=== PATIENT | male | born 1965 | race Caucasian/White ===

== ENCOUNTER 2019-01-11 20:39 | Inpatient (IN) | payer MEDICARE, SELFPAY ==
--- NOTE | 2019-01-11 20:53 | CT ---
FExam: CT brain PROVIDED CLINICAL HISTORY: Left-sided weakness and left-sided facial droop, surgeons each and right-sided weakness COMPARISON: None FINDINGS: There is asymmetric prominence of the temporal horn of the right lateral ventricle presumably ex vacu o in nature on the basis of prior infarction. Chronic microvascular ischemic changes are seen. No arlene dence for intracranial hemorrhage or mass effect. The extracranial soft tissues and osseous structure s demonstrate an unremarkable CT appearance. IMPRESSION: No evidence for intracranial hemorrhage or mass effect. Findings communicated to the ordering clinici an 8:50 PM 01/11/2019. Code CR
[2019-01-11 21:01] LABS: #Eosinphils 0.2 thou/uL (0.0-0.7); #Monocytes 0.7 thou/uL (0.11-0.59); #Neutrophils 7.7 thou/uL (1.40-6.50); %Basophils 0.3 % (0.0-1.0); %Eosinophils 1.8 % (0.0-10.0); %Lymphocytes 18.5 % (21.0-51.0); %Monocytes 6.6 % (0.0-10.0); %Neutrophils 72.8 % (42.0-75.0); Hemoglobin 14.5 g/dL (14.0-18.0); Mean Corpuscular Hemoglobin 29.4 pg (27.0-31.0); Mean Corpuscular Volume 89.3 fL (78.0-98.0); Mean Platelet Volume 7.5 fL (7.4-10.4); Platelet Count 213 thou/uL (130-400); RBC Distribution Width 13.2 % (11.5-14.5); Red Blood Cell (RBC) Count 4.92 mill/uL (4.70-6.10); White Blood Cell (WBC) Count 10.6 thou/uL (4.8-10.8)
[2019-01-11] MEDS ORDERED: Sodium Bicarb 50 MEQ/50 ML Abboject 8.4% SYRINGE ONE (21:03)
[2019-01-11] MEDS ORDERED: Sodium Bicarb 50 MEQ/50 ML VIAL ONE (21:03)
[2019-01-11 21:08] LABS: PTT 32.8 SEC (22.9-36.1); Prothrombin Time 13.5 SEC (12.0-14.7)
[2019-01-11 21:15] LABS: ALT (SGPT) 22 U/L (8-55); AST (SGOT) 21 U/L (5-34); Albumin 3.7 g/dL (3.5-5.0); Alkaline Phosphatase 85 U/L (40-150); Anion Gap 12 mmol/L (10-20); BUN (Urea Nitrogen) 10 mg/dL (8.4-25.7); Bilirubin, Total 0.7 mg/dL (0.2-1.2); CK (CPK) 151 U/L (30-200); Calc. Creatinine Clearance 0 mL/min (70-130); Calcium 8.8 mg/dL (7.8-10.44); Carbon Dioxide 23 mmol/L (22-29); Chloride 108 mmol/L (98-107); Estimated GFR-MDRD 54; Globulin 2.6 g/dL (2.4-3.5); Glucose 94 mg/dL (70-105); Potassium 3.6 mmol/L (3.5-5.1); Protein, Total 6.3 g/dL (6.0-8.3); Sodium 139 mmol/L (136-145)
[2019-01-11 21:16] LABS: Acetaminophen Less than 6.0 mcg/mL (10.0-30.0); Alcohol Less than 10 mg/dL (Less than 10); Salicylate Less than 8.0 mg/dL (15.0-30.0)
[2019-01-11 21:32] LABS: Actual Bicarbonate (HCO3a) 32.5 mEq/L (22-28); Analyzer IN Cardio ER; Base Excess (BEa) 9.1 mEq/L (-2.0 to +3.0); Calcium, Ionized 1.06 mmol/L (1.12-1.30); Carboxyhemoglobin (COHb) 0.5 gm% (0.0-3.0); Hemoglobin (Hb) 14.6 g/dL (14.0-18.0); Potassium - ABG Lab 3.36 mmol/L (3.70-5.30); pH, Arterial 7.53 (7.35-7.45)
[2019-01-11 21:33] LABS: Puncture Site RRA
[2019-01-11] MEDS ORDERED: Sodium Bicarbonate 150 MEQ in Dextrose 5% in Water 1,000 ML IV SCH (21:45)
--- NOTE | 2019-01-11 23:13 | PDOC.FPRHP ---
- History of Present Illness Chief Complaint: found down History of Present Illness: *pt does not recall much of the events leading up to ER visit and is generally poor historian. Much of hx given by EMS etc. 53yo M with hx of CVA presents after being found unarousable in his car by his neighbor. When he did finally waken pt was noted to have speech issues and L sided weakness with AMS and called EMS. Pt reports he takes amitriptyline for chronic shoulder pain and insomnia and he kept taking pills to help him sleep but denies taking more than 5 though is not really sure. EMS noted a bottle of amitriptyline in the pts house that was filled on 01/09 for 15 100mg amitriptyline tabs of which only 5 were remaining. Pt was supposed to be taking 1 per day. Pt denies any symptoms when evaluated except residual L sided weakness and numbness since previous CVA. Also reports he is generally non compliant with home medications. Pt denies depression or anxiety, denies attempted suicide, no SI/HI/AVH ED Course: EKG shows QRS 102->106->102, pt given 3 amps of bicarb and then started on drip. CT brain shows no evidence of stroke - Allergies/Adverse Reactions Allergies Allergy/AdvReac Type Severity Reaction Status Date / Time Iodinated Contrast- Oral and Allergy Verified 01/11/19 21:22 IV Dye - Home Medications Medication Instructions Recorded Confirmed Type Amitriptyline HCl 100 mg PO DAILY 01/12/19 01/12/19 History Aspirin [Ecotrin Low Strength] 81 mg PO DAILY 01/12/19 01/12/19 History Atorvastatin Calcium [Lipitor] 40 mg PO HS #30 tab 01/12/19 Rx Lisinopril 40 mg PO DAILY 01/12/19 01/12/19 History Ventolin HFA Inhaler 2 puff INH Q4HR PRN 01/12/19 01/12/19 History - History PMHx: HTN, asthma, Hx of CVA (l sided weakness and numbness) PSHx: L knee FHx: stroke Social: drinks 2 beers/day, denies drugs, denies tobacco - Review of Systems General: denies: fever/chills, fatigue Eyes: denies: eye pain, vision changes ENT: denies: nasal congestion, rhinorrhea Respiratory: denies: cough, shortness of breath Cardiovascular: denies: chest pain, palpitation Gastrointestinal: denies: nausea, vomiting Genitourinary: denies: dysuria, polyuria Skin: denies: rashes, lesions Musculoskeletal: denies: pain, tenderness Neurological: denies: syncope, seizure Psychological: denies: anxiety, depression - Vital signs BP: 164/115, Pulse: 96, Resp: 16, Pain: 0, O2 sat: 98 on Room Air, Time: 2018 00:18., TMAX 98.9, weight 72kg - Physical Exam Constitutional: NAD, awake, alert and oriented HEENT: normocephalic and atraumatic, EOMI, grossly normal vision, grossly normal hearing, MMM Neck: supple, trachea midline Chest: no-tender to palpation Heart: RRR, normal S1/S2 Lungs: CTAB, no respiratory distress Abdomen: soft, non-tender Musculoskeletal: normal structure, normal tone -Neurological: 4/5 strength on UE adduction and elbow flexion and hip flexion, decreased sensation to LUE. Otherwise processing manager sensory, strength and reflexes intact and symetric Skin: no rash/lesions, good turgor Heme/Lymphatic: no unusual bruising or bleeding, no purpura Psychiatric: good judgment and insight, other (flat affect) FMR H&P: Results - Labs Result Diagrams: 01/12/19 05:18 01/12/19 05:18 Lab results: WBC 10.6 thou/uL (4.8-10.8) 01/11/19 20:51 Hgb 14.5 g/dL (14.0-18.0) 01/11/19 20:51 Hct 43.9 % (42.0-52.0) 01/11/19 20:51 MCV 89.3 fL (78.0-98.0) 01/11/19 20:51 Plt Count 213 thou/uL (130-400) 01/11/19 20:51 Neutrophils % 72.8 % (42.0-75.0) 01/11/19 20:51 ABG pH 7.53 (7.35-7.45) H 01/11/19 21:27 ABG pCO2 40.0 mmHg (35.0-45.0) 01/11/19 21:27 ABG pO2 69.0 mmHg (80.0-100.0) L 01/11/19 21:27 Sodium 139 mmol/L (136-145) 01/11/19 20:51 Potassium 3.6 mmol/L (3.5-5.1) 01/11/19 20:51 Chloride 108 mmol/L (98-107) H 01/11/19 20:51 Carbon Dioxide 23 mmol/L (22-29) 01/11/19 20:51 BUN 10 mg/dL (8.4-25.7) 01/11/19 20:51 Creatinine 1.37 mg/dL (0.7-1.3) H 01/11/19 20:51 Glucose 94 mg/dL (70-105) 01/11/19 20:51 Lactic Acid 1.8 mmol/L (0.5-2.2) 01/11/19 20:51 Calcium 8.8 mg/dL (7.8-10.44) 01/11/19 20:51 Total Bilirubin 0.7 mg/dL (0.2-1.2) 01/11/19 20:51 AST 21 U/L (5-34) 01/11/19 20:51 ALT 22 U/L (8-55) 01/11/19 20:51 Alkaline Phosphatase 85 U/L (40-150) 01/11/19 20:51 Creatine Kinase 151 U/L (30-200) 01/11/19 20:51 Serum Total Protein 6.3 g/dL (6.0-8.3) 01/11/19 20:51 Albumin 3.7 g/dL (3.5-5.0) 01/11/19 20:51 FMR H&P: A/P - Problem List (1) Amitriptyline overdose Status: Acute Code(s): T43.011A - POISONING BY TRICYCLIC ANTIDEPRESSANTS, ACCIDENTAL, INIT (2) Encephalitis Status: Acute Code(s): G04.90 - ENCEPHALITIS AND ENCEPHALOMYELITIS, UNSPECIFIED (3) HTN (hypertension) Status: Acute Code(s): I10 - ESSENTIAL (PRIMARY) HYPERTENSION (4) Asthma Status: Acute Code(s): J45.909 - UNSPECIFIED ASTHMA, UNCOMPLICATED - Plan Possible amitriptyline overdose A- Pt may have taken up to 1g of amitriptyline causing his initial somnolence. Pt seems to have recovered good mental status, QRS 102 on recent EKG even after 3 amps bicarb plus being on drip for 1.5 hours. ABG shows pt is alkalotic, Poison control called and recommendations are much appreciated. P- admit to IMCU for anticipation of continued bicarb - will get stat EKG for up to date QRS, will consider restarting bicarb drip at that time - LR 100/hr - observe overnight - likely move to tele in AM Altered mental status 2/2 overdose vs. TIA/CVA A- pt at risk with non complinace to meds and hx of CVA P- plan per above - MRI, ECHO, carotid dopllers - FLP - ASA, statin HERMAN vs CKD A- Cr. mildly elevated, possibly due to hypovolemia P- LR as above and monitor BMP HTN - hold lisinopril for permissive htn asthma - continue home albuterol CODE: DNI FMR H&P: Upper Level - Pertinent history Laci Gibson is a 53 year old male with a history of CVA and left sided deficits who presents to the ED. Per EMS, pt's friend last seen normal at 11 am. Stroke alert initially called due to slurred speech and right sided weakness, however Pt admitted taking extra Amitriptyline today due to insomnia and leg pain. Concern for Amitrityplyine overdose given that pt has a recent refill of amitriptyline on 01/09 for 15 tablets, but currently has only 5 remaining. Uncertain time of ingestion. - Pertinent findings Initial Vitals : BP: 147/104, Pulse: 126, Resp: 17, Pain: 0, O2 sat: 95 on Room Air Exam: General: alert and oriented to person; pt does not appear somnolent Heart: tachycardic, regular rhythm, no murmurs, rubs, or gallops. Lungs: clear to auscultation Neuro: CN II-XIi intact; RUE dense paralysis, RLE 3/5 weakness; consistent with prior CVA CT negative for acute findings. pH: 7.53 after bicarb given. - Plan Date/Time: 01/11/19 2313 Yuliya Graves, have evaluated this patient and agree with findings/plan as outlined by chemist intern resident. Pertinent changes/additions are listed here. Possible TCA overdose - will admit to IMCU for further monitoring. - pt is tachycardic; no hypotension - Discussed with poison control who recommended continuation of bicarbonate drip. Will repeat EKG and ABG after bicarb drip is finished. - continue seizure precautions. Acute encephalopathy - possibly toxic secondary to #1 - SDS negative; UDS pending; will check NH3. - will also rule out CVA given pt's history. MRI and Echo in AM. - UA pending. - ASA, high dose statin therapy. Metabolic alkalosis - iatrogenic from bicarb administration - will repeat ABG after bicarb is finished Addendum - Attending - Attending Attestation Date/Time: 01/11/19 4467 I personally evaluated the patient and discussed the management with Dr. Montero and Dr. Mcgarry I agree with the History, Examination, Assessment and Plan documented above with any addition or exceptions noted below. 53 yo male with multiple medical conditions presents for evaluation of unresponsiveness. Patient found unresponsive in his car by his neighbor. Brought in by EMS. No alert and orient but unaware all events. Appears to have medication overdose. Unsure patient intensions. Reports he was trying to get to sleep. Unsure why he was in his car. Remembers for sure taking 5 but appears took more than 5. Will admit to IMCU. Continue recommendations per poison control. Rule out other causes of AMS/unconsciousness. Imaging pending. Monitor cardiac parameters closely. Cheli
[2019-01-12 00:10] LABS: Amphetamine Not Detected (NotDetected); Barbiturates Screen Not Detected (NotDetected); Benzodiazepine Screen Not Detected (NotDetected); Cocaine Metabolite Screen Not Detected (NotDetected); Medtox Control Line Valid? VALID (VALID); Medtox Reader # READER 1; Methadone Not Detected (NotDetected); Methamphetamine Not Detected (NotDetected); Opiate Screen Not Detected (NotDetected); Oxycodone Screen Not Detected (NotDetected); Phencyclidine (PCP) Not Detected (NotDetected); THC/Cannabinoid Screen Not Detected (NotDetected); Tricyclic Screen Detected (NotDetected)
[2019-01-12] MEDS ORDERED: Sodium Bicarb 50 MEQ/50 ML VIAL ONE (00:19)
[2019-01-12 00:35] LABS: Actual Bicarbonate (HCO3a) 36.3 mEq/L (22-28); Analyzer IN Cardio ER; Base Excess (BEa) 12.7 mEq/L (-2.0 to +3.0); CO2 Tension 42.1 mmHg (35.0-45.0); Calcium, Ionized 1.05 mmol/L (1.12-1.30); Carboxyhemoglobin (COHb) 0.4 gm% (0.0-3.0); Hemoglobin (Hb) 14.1 g/dL (14.0-18.0); O2 Tension (PaO2) 72.3 mmHg (80.0-100.0); Potassium - ABG Lab 3.09 mmol/L (3.70-5.30)
[2019-01-12 00:36] LABS: pH, Arterial 7.55 (7.35-7.45)
[2019-01-12 00:37] LABS: ALV-art Gradient 24.805 (0-20); Puncture Site RRA
[2019-01-12] MEDS ORDERED: Ondansetron PF 4 MG/2 ML Vial IVP PRN (03:16)
[2019-01-12] MEDS ORDERED: Ondansetron ODT 4 MG TAB SL PRN (03:16)
[2019-01-12] MEDS ORDERED: Acetaminophen 325 MG TAB PO PRN (03:16)
[2019-01-12] MEDS ORDERED: PROVENTIL INHALER 6.7 G (200 INHALATIONS) INH PRN (03:19)
[2019-01-12 03:22] VITALS: BMI 25.6
[2019-01-12] MEDS ORDERED: Aspirin 325 mg Enteric Coated Tablet PO SCH (03:30)
[2019-01-12] MEDS: Lactated Ringer's 1,000 ML IV SCH ×2 (04:19→12:02)
[2019-01-12 05:27] LABS: #Eosinphils 0.3 thou/uL (0.0-0.7); #Lymphocytes 2.9 thou/uL (1.20-3.40); #Monocytes 0.7 thou/uL (0.11-0.59); #Neutrophils 5.1 thou/uL (1.40-6.50); %Basophils 0.4 % (0.0-1.0); %Eosinophils 3.4 % (0.0-10.0); %Lymphocytes 31.9 % (21.0-51.0); %Monocytes 8.2 % (0.0-10.0); %Neutrophils 56.2 % (42.0-75.0); Hemoglobin 13.7 g/dL (14.0-18.0); Mean Corpuscular HGB CONC 32.8 g/dL (32.0-36.0); Mean Corpuscular Hemoglobin 29.6 pg (27.0-31.0); Mean Platelet Volume 7.4 fL (7.4-10.4); Platelet Count 214 thou/uL (130-400); Red Blood Cell (RBC) Count 4.64 mill/uL (4.70-6.10); White Blood Cell (WBC) Count 9.1 thou/uL (4.8-10.8)
[2019-01-12 05:50] LABS: ALT (SGPT) 23 U/L (8-55); AST (SGOT) 22 U/L (5-34); Albumin 3.5 g/dL (3.5-5.0); Alkaline Phosphatase 78 U/L (40-150); Anion Gap 11 mmol/L (10-20); BUN (Urea Nitrogen) 9 mg/dL (8.4-25.7); Bilirubin, Total 0.9 mg/dL (0.2-1.2); Calc. Creatinine Clearance 66 mL/min (70-130); Calcium 8.4 mg/dL (7.8-10.44); Carbon Dioxide 34 mmol/L (22-29); Cardiac Risk 4.3 (Less than 4.5); Chloride 103 mmol/L (98-107); Cholesterol 152 mg/dl (< 200 Desired); Estimated GFR-MDRD 59; Globulin 2.4 g/dL (2.4-3.5); Glucose 91 mg/dL (70-105); HDL Cholesterol 35 mg/dL (>60 Neg Risk); LDL Cholesterol, Calculated 84 mg/dL; Protein, Total 5.9 g/dL (6.0-8.3); Sodium 145 mmol/L (136-145); Triglycerides 164 mg/dL (Less than 150)
--- NOTE | 2019-01-12 07:05 | PDOC.FM ---
- Subjective Subjective: pt resting comfortably, reports leg cramp that has happened frequently since his stroke. Denies any new weakness, slurred speech, chest pain, or palpitations. - Objective Vital Signs & Weight: Vital Signs (12 hours) Temp Pulse Ox 01/12/19 04:33 99 01/12/19 03:21 99 F Weight Weight 69.944 kg Most Recent Monitor Data Heart Rate from ECG 85 NIBP 162/110 NIBP BP-Mean 127 Respiration from ECG 19 SpO2 99 I&O: 01/11/19 01/12/19 01/13/19 06:59 06:59 06:59 Output Total 200 Balance -200 Result Diagrams: 01/12/19 05:18 01/12/19 05:18 Phys Exam - Physical Examination Constitutional: NAD HEENT: moist MMs Neck: full ROM Respiratory: clear to auscultation bilateral Cardiovascular: RRR, no significant murmur Gastrointestinal: soft, non-tender, no distention Musculoskeletal: no edema, pulses present baseline L sided weakness Lymphatic: no nodes Psychiatric: normal affect Skin: no rash Dx/Plan (1) History of CVA (cerebrovascular accident) Code(s): Z86.73 - PRSNL HX OF TIA (TIA), AND CEREB INFRC W/O RESID DEFICITS Status: Acute (2) Amitriptyline overdose Code(s): T43.011A - POISONING BY TRICYCLIC ANTIDEPRESSANTS, ACCIDENTAL, INIT Status: Acute (3) Asthma Code(s): J45.909 - UNSPECIFIED ASTHMA, UNCOMPLICATED Status: Acute (4) Encephalitis Code(s): G04.90 - ENCEPHALITIS AND ENCEPHALOMYELITIS, UNSPECIFIED Status: Acute (5) HTN (hypertension) Code(s): I10 - ESSENTIAL (PRIMARY) HYPERTENSION Status: Acute - Plan Plan: Possible amitriptyline overdose - Pt may have taken up to 1g of amitriptyline causing his initial somnolence. Pt seems to have recovered good mental status, QRS 102 on recent EKG even after 3 amps bicarb plus being on drip for 1.5 hours. ABG shows pt is alkalotic, Poison control called and recommendations are much appreciated. - bicarb discontinued - EKG today to monitor QRS seg, if stable, move to tele - LR 100/hr Altered mental status 2/2 overdose vs. TIA/CVA - pt at risk with non complinace to meds and hx of CVA - plan per above - MRI, ECHO, carotid doppler - ASA, statin HERMAN vs CKD - Cr. mildly elevated, possibly due to hypovolemia - LR as above and monitor BMP HTN - hold lisinopril for permissive htn asthma - continue home albuterol CODE: DNI ppx:[facility] Dispo: DC home today or tomorrow with stable QRS/normal pH, and imaging w/o acute findings
[2019-01-12 08:58] LABS: Actual Bicarbonate (HCO3a) 29.7 mEq/L (22-28); Base Excess (BEa) 5.2 mEq/L (-2.0 to +3.0); CO2 Tension 43.1 mmHg (35.0-45.0); Carboxyhemoglobin (COHb) 1.2 gm% (0.0-3.0); Hemoglobin (Hb) 13.7 g/dL (14.0-18.0); O2 Tension (PaO2) 76.7 mmHg (80.0-100.0); Potassium - ABG Lab 3.15 mmol/L (3.70-5.30); pH, Arterial 7.46 (7.35-7.45)
[2019-01-12 08:59] LABS: ALV-art Gradient 19.155 (0-20); Puncture Site LB
[2019-01-12] MEDS: Enoxaparin Sodium 30 MG/0.3 ML SYRINGE SC SCH (09:13)
[2019-01-12] MEDS: Aspirin 81 mg Enteric Coated Tablet PO SCH (09:13)
--- NOTE | 2019-01-12 10:56 | ULT ---
FBILATERAL CAROTID DUPLEX ULTRASOUND: HISTORY: TIA TECHNIQUE: Grayscale, color-flow and spectral Doppler ultrasound imaging of the extracranial carotid artery syst ems was performed bilaterally. FINDINGS: Mild plaque formation. The peak systolic velocity in the right ICA measures 61 cm/s. The peak systolic velocity in the left ICA measures 60 cm/s. Vertebral flow: antegrade, bilaterally. . IMPRESSION: No hemodynamically significant stenosis of Both ICAs.
--- NOTE | 2019-01-12 11:17 | MRI ---
BRAIN MRI WITHOUT CONTRAST: Date: 01/12/19 HISTORY: Transient ischemic attack versus stroke versus overdose. Left-sided weakness and left facial droop. R ight-sided weakness. COMPARISON: None. FINDINGS: Calvarium has a normal T1 marrow signal intensity. Midline brain parenchymal structures are unremarka ble. On the gradient echo sequence, there is hypointensity along the right cerebrum compatible with remote insult. Recent CT demonstrates associated encephalomalacia. There is a focus of hypointensity in the right cerebellar hemisphere with associated T2 and T1 hypointensity. Findings may represent a cavern ous hemangioma versus hemosiderin from remote insult. Underlying mass lesion cannot be excluded. Post contrast imaging is recommended. With the exception of the right cerebrum, cortical flynn-white matter differentiation is preserved. Th ere is ex vacuo dilatation of the right lateral ventricle. Chronic small vessel ischemic changes of t he white matter are identified. Right-sided Wallerian degeneration is noted. Central arterial flow-voids are maintained. No restricted diffusion. Adequate aeration of the sinuses and mastoid air cells. IMPRESSION: 1. Absent restricted diffusion. No acute infarct. 2. GRE hypointensity in the right cerebellar hemisphere due to cavernoma, hemosiderin deposition fro m previous insult, or possibly underlying mass lesion. Postcontrast imaging is recommended. POS: AIDA
--- NOTE | 2019-01-12 13:45 | CON ---
DATE OF CONSULTATION: 01/12/2019 SERVICE: Pulmonary Medicine. HISTORY OF PRESENT ILLNESS: The patient is a 53-year-old white male, who takes a tricyclic antidepressant on a nightly basis. This is supposed to aid him with sleep. Recently, he had a fairly significant bout of insomnia and overused this medication. He was very difficult to arouse and was subsequently brought to the emergency department. He was watched in the IMCU very closely overnight. He had no events. There were no telemetry events, and his mentation improved significantly this morning. Currently, he is awake and alert, and attends very comfortably. He is following all commands. He currently denies any chest pain, fevers, chills, shortness of breath, nausea, or vomiting. Otherwise, there has been no interval change to his condition. PAST MEDICAL HISTORY: 1. Asthma. 2. Hypertension. 3. History of CVA with residual left-sided weakness. PAST SURGICAL HISTORY: Left knee surgery. FAMILY HISTORY: Noncontributory. SOCIAL HISTORY: He drinks beer on a nightly basis. Denies any alcohol or illicit drugs. He has no exposure to chemicals, dust, asbestos, or tuberculosis otherwise. ALLERGIES: IODINE AND CONTRAST. MEDICATIONS: List of his inpatient medications were reviewed. No specific updates were made at this time. REVIEW OF SYSTEMS: General, head, ears, eyes, nose, throat, cardiovascular, respiratory, GI, , musculoskeletal, neurologic, and skin is negative except as mentioned in HPI. PHYSICAL EXAMINATION: VITAL SIGNS: Afebrile, pulse 93, blood pressure 144/105, respirations 13, and saturation 98% on room air. GENERAL: The patient is awake and alert, in no apparent distress. LUNGS: Decent air entry. No crackles or rhonchi appreciated. No prolonged expiratory phases appreciated. HEART: Normal rate and regular. ABDOMEN: Soft, nontender, and nondistended. Bowel sounds are positive. MUSCULOSKELETAL: No cyanosis or clubbing. There is no pitting in the bilateral lower extremities. NEUROLOGIC: Grossly nonfocal. LABORATORY DATA: WBC 9.1, hemoglobin 13.7, and platelets 214,000. INR 1.0. A pH 7.467, pCO2 of 43, and PO2 of 76. Potassium 3.0. Basic metabolic profile and liver function studies are otherwise unremarkable. Troponin is negative x1. TSH falls within the normal limits. Urine drug screen is positive for tricyclic antidepressants. Acetaminophen, salicylates, and alcohol level are negative. IMAGING STUDIES: 1. CT of the brain demonstrates chronic right-sided changes. No evidence for acute intracranial abnormality. Microvascular ischemic changes are noted. 2. MRI of the brain demonstrates an old stroke. No acute intracranial abnormality is present. A lesion was identified in the cerebellum and postcontrast images were to be considered. 3. Carotid Doppler demonstrates no hemodynamically significant stenosis. ASSESSMENT: 1. Tricyclic antidepressant overdose, unintentional. 2. Metabolic encephalopathy, resolved. 3. Remote stroke. DISCUSSION AND PLAN: The patient is stable for transition out of the ICU to the telemetry unit. Pulmonary Critical Care will continue to follow along if he remains in this location. When he arrives on the floor, he will have no further requirements for inpatient pulmonary critical care opinion, and I will sign off. Please call with additional questions or concerns through time. 70 minutes have been devoted to this patient in various activities. I personally reviewed all imaging studies and laboratory data noted within this document. For fifty percent of this time, I was interacting with the patient at the bedside or coordinating care with the care team. For the remainder of the time I was immediately available to the patient in the hospital unit. Job ID: [id number] MTDD
[2019-01-12] MEDS ORDERED: diphenhydrAMINE 50 MG CAP PO SCH (16:00)
[2019-01-12] MEDS ORDERED: Atorvastatin Calcium 40 MG TAB PO SCH (21:00)
--- NOTE | 2019-01-12 21:19 | EKG ---
Test Reason : REPEAT Blood Pressure : / mmHG Vent. Rate : 090 BPM Atrial Rate : 090 BPM P-R Int : 178 ms QRS Dur : 108 ms QT Int : 386 ms P-R-T Axes : 014 -12 003 degrees QTc Int : 472 ms Normal sinus rhythm Inferior infarct , age undetermined Abnormal ECG Confirmed by MANJIT YEE, DR. Santiago (4) on 01/12/2019 9:18:50 PM Referred By: Confirmed By:DR. Pamela SARAVIA MD
--- NOTE | 2019-01-12 21:23 | EKG ---
Test Reason : Blood Pressure : / mmHG Vent. Rate : 090 BPM Atrial Rate : 090 BPM P-R Int : 182 ms QRS Dur : 108 ms QT Int : 400 ms P-R-T Axes : 051 050 021 degrees QTc Int : 489 ms Normal sinus rhythm Cannot rule out Inferior infarct , age undetermined Abnormal ECG When compared with ECG of 12-JAN-2019 02:07, (Unconfirmed) Questionable change in QRS axis Nonspecific T wave abnormality has replaced inverted T waves in Inferior leads Confirmed by MANJIT YEE, . SGagandeep (4) on 01/12/2019 9:23:00 PM Referred By: ASIA *R Confirmed By:DR. Pamela SARAVIA MD
--- NOTE | 2019-01-12 21:31 | EKG ---
Test Reason : Blood Pressure : / mmHG Vent. Rate : 093 BPM Atrial Rate : 093 BPM P-R Int : 170 ms QRS Dur : 112 ms QT Int : 380 ms P-R-T Axes : 050 016 027 degrees QTc Int : 472 ms Normal sinus rhythm Inferior infarct (cited on or before 12-JAN-2019) Abnormal ECG When compared with ECG of 12-JAN-2019 07:26, (Unconfirmed) No significant change was found Confirmed by MANJIT YEE, SGagandeep (4) on 01/12/2019 9:31:32 PM Referred By: ARIANE Confirmed By:DR. Pamela SARAVIA MD
[2019-01-12] MEDS: predniSONE 50 MG TAB PO SCH (22:20)
--- NOTE | 2019-01-13 00:02 | CON ---
DATE OF CONSULTATION: 01/12/2019 CONSULTING PHYSICIAN: Family Medicine Service. IMPRESSION: 1. Falling secondary to tricyclic overdose. 2. History of prior intracerebral hemorrhage likely secondary to an underlying vascular malformation dating back to 2011 resulting in left hemiparesis. 3. 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 PLAN: MRI of the brain with contrast. HISTORY OF PRESENT ILLNESS: Mr. Gibson is a 53-year-old man with a history of a left hemiparesis. He had been having difficulty sleeping. He took some extra amitriptyline. He was staggering around the room and falling. His friends called EMS and had him brought to the hospital. He had initial CT scan of the brain done and then an MRI. The MRI showed large area of old hemorrhage in the right periventricular region. There was a small right cerebellar lesion also, contrast was not given. PAST HISTORY: Head traumas. FAMILY HISTORY: Noncontributory. ALLERGIES: IODINE. SOCIAL HISTORY: No illicit drug use. REVIEW OF SYSTEMS: Ten-system review of systems is otherwise negative. PHYSICAL EXAMINATION: VITAL SIGNS: Stable. He is afebrile. HEENT: Pupils equal and reactive. Conjunctivae clear. Oropharynx clear. NECK: Supple. EXTREMITIES: No cyanosis or edema. NEUROLOGIC: He is alert and cooperative. His speech is fluent and clear. Cranial nerves appear to be intact. Motor exam shows some spastic weakness of both the left arm and leg. He has complete footdrop on the left. Sensation is subjectively decreased to light touch on the left side. No abnormal movements were seen. Gait was not tested. LABORATORY DATA: Imaging was reviewed. SUMMARY: A 53-year-old man with old left hemiparesis and a small lesion in the cerebellum which is likely a vascular malformation. Contrast study would confirm this. He otherwise appears to be back to his baseline. Job ID: [id number]
[2019-01-13] MEDS: predniSONE 50 MG TAB PO SCH ×2 (05:14→09:37)
--- NOTE | 2019-01-13 06:50 | PDOC.FM ---
- Subjective Subjective: pt resting comfortably in bed, reports no new weakness or neuro deficits - Objective Vital Signs & Weight: Vital Signs (12 hours) Temp Pulse Resp BP Pulse Ox 01/13/19 03:46 98.8 F 85 16 133/87 93 L 01/12/19 23:45 98.7 F 94 16 173/99 H 93 L 01/12/19 21:25 165/100 H 01/12/19 20:00 95 01/12/19 19:45 98.6 F 99 16 193/106 H 95 Weight Weight 69.944 kg Most Recent Monitor Data Heart Rate from ECG 97 NIBP 153/107 NIBP BP-Mean 122 Respiration from ECG 13 SpO2 100 I&O: 01/11/19 01/12/19 01/13/19 06:59 06:59 06:59 Intake Total 2004 Output Total 200 1325 Balance -200 680 Result Diagrams: 01/12/19 05:18 01/12/19 05:18 Phys Exam - Physical Examination Constitutional: NAD HEENT: moist MMs Neck: full ROM Respiratory: clear to auscultation bilateral Cardiovascular: RRR, no significant murmur Gastrointestinal: no distention Musculoskeletal: pulses present Neurological: normal sensation Psychiatric: normal affect Skin: no rash Dx/Plan (1) History of CVA (cerebrovascular accident) Code(s): Z86.73 - PRSNL HX OF TIA (TIA), AND CEREB INFRC W/O RESID DEFICITS Status: Acute (2) Amitriptyline overdose Code(s): T43.011A - POISONING BY TRICYCLIC ANTIDEPRESSANTS, ACCIDENTAL, INIT Status: Acute (3) Asthma Code(s): J45.909 - UNSPECIFIED ASTHMA, UNCOMPLICATED Status: Acute (4) Encephalitis Code(s): G04.90 - ENCEPHALITIS AND ENCEPHALOMYELITIS, UNSPECIFIED Status: Acute (5) HTN (hypertension) Code(s): I10 - ESSENTIAL (PRIMARY) HYPERTENSION Status: Acute - Plan Plan: Possible amitriptyline overdose - Pt may have taken up to 1g of amitriptyline causing his initial somnolence. Pt seems to have recovered good mental status, QRS 102 on recent EKG even after 3 amps bicarb plus being on drip for 1.5 hours. ABG shows pt is alkalotic, Poison control called and recommendations are much appreciated. - bicarb discontinued - QRS seg stable, monitor on stroke - LR 100/hr Altered mental status 2/2 overdose vs. TIA/CVA - pt at risk with non complinace to meds and hx of CVA - plan per above, neurology consulted, appreciate recs - MRI shows possible vascular malformation, w/ con pending - unknown contrast allergy, protocol began - ECHO, carotid doppler - ASA, statin HERMAN vs CKD - Cr. mildly elevated, possibly due to hypovolemia - LR as above and monitor BMP HTN - resume lisinopril asthma - continue home albuterol CODE: DNI ppx:[facility] Dispo: DC home today with stable QRS/normal pH, and imaging w/o acute findings
[2019-01-13] MEDS ORDERED: diphenhydrAMINE 50 MG CAP PO SCH (08:00)
[2019-01-13] MEDS ORDERED: Lisinopril 20 MG TAB PO SCH (09:00)
[2019-01-13] MEDS: Enoxaparin Sodium 30 MG/0.3 ML SYRINGE SC SCH (09:37)
[2019-01-13] MEDS: Aspirin 81 mg Enteric Coated Tablet PO SCH (09:38)
--- NOTE | 2019-01-13 10:48 | MRI ---
FExam: MRI brain with and without contrast HISTORY: Abnormal lesion in the right cerebellar hemisphere COMPARISON: 01/12/2019 FINDINGS: There is been no significant interval change in the brain parenchyma when compared to the previous ex amination. Previously noted lesion in the right cerebellar hemisphere is once again demonstrated. The re is no evidence of associated enhancement. There is intrinsic T1 hypointensity. No pathologic enhancement the brain parenchyma. IMPRESSION: No evidence of enhancement associated with the lesion in the right cerebellar hemisphere. There is T1 hypointensity. An area of remote infarction with resultant hemosiderin deposition is fav ored.
--- NOTE | 2019-01-13 14:49 | EKG ---
Test Reason : Blood Pressure : / mmHG Vent. Rate : 111 BPM Atrial Rate : 111 BPM P-R Int : 172 ms QRS Dur : 100 ms QT Int : 352 ms P-R-T Axes : 048 038 027 degrees QTc Int : 478 ms Sinus tachycardia Possible Inferior infarct (cited on or before 11-JAN-2019) Abnormal ECG When compared with ECG of 12-JAN-2019 14:39, Serial changes of Inferior infarct Present Confirmed by MANJIT YEE, DR. S. ([id number]) on 01/13/2019 2:49:19 PM Referred By: SANTY Confirmed By:DR. Pamela SARAVIA MD
[2019-01-13 15:47] VITALS: BP 137/76; TEMP 97.2
--- NOTE | 2019-01-13 17:14 | PRG ---
DATE OF SERVICE: 01/13/2019 Mr. Gibson is resting quietly. 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 We will therefore discharge him today for followup with his PCP. Job ID: [id number]
--- NOTE | 2019-01-16 10:57 | DIS ---
DATE OF ADMISSION: 01/12/2019 DATE OF DISCHARGE: 01/13/2019 ADMITTING ATTENDING: Boby Roper MD. DISCHARGE ATTENDING: Robert Mcdaniel MD. RESIDENT: Dr. Bill South. CONSULTS: Neurology, Dr. Mejia Sanchez. IMAGIN. Brain CT significant for no acute abnormalities. 2. Brain MRI with and without contrast significant for no acute infarct. 3. 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 Postcontrast imaging is recommended. 4. Postcontrast imaging revealed no evidence of enhancement associated with the lesion in the right cerebellar hemisphere area of remote infarction with resulting hemosiderin deposit is favored. 5. Echocardiogram significant for left ventricular ejection fraction measured at 55% to 60%. Mild mitral and tricuspid regurgitation. DISCHARGE MEDICATIONS: 1. Ventolin 2 puffs inhaled q.4 hours p.r.n. 2. Aspirin 81 mg p.o. daily. 3. Lisinopril 40 mg p.o. daily. 4. Atorvastatin 40 mg p.o. at bedtime. DISCONTINUED MEDICATIONS: Amitriptyline 100 mg p.o. daily. PRIMARY DIAGNOSIS: Altered mental status secondary to possible amitriptyline overdose. SECONDARY DIAGNOSES: 1. Transient ischemic attack, CVA ruled out. 2. Chronic kidney disease. 3. Hypertension. 4. Asthma. HOSPITAL COURSE: Mr. Gibson is a 53-year-old male with a past medical history significant for CVA, presents for being found down and unarousable in his car by neighbor. When he was around, it was noted that he did have a left-sided weakness and altered mental status, slurring of his speech, later determined to be his baseline weakness from prior CVA. At the time of the incident, he reports that he possibly took an unknown amount of amitriptyline, later confirmed by pharmacy and EMS reports to be approximately 1 g based on what was left in the bottle and when he last filled it. At that time, he decided any suicidal or homicidal ideation in the emergency department. His QRS was noted to be prolonged to a maximum of 112. Poison Control was consulted and recommended serial EKGs, blood gases, and CMPs. Bicarb was started at that time. The patient became alkalotic, bicarb was stopped. QRS was serially monitored and determined to be stable at around 106. The patient's altered mental status resolved, determined to be a baseline deficits. Neurology was consulted and agreed that no new ischemic event occurred. The patient continued to improve. Vital signs remained stable. Serial EKGs remained stable. Determined stable for discharge home with followup. DIET: Heart-healthy, low-sodium. ACTIVITY: As tolerated. FOLLOWUP: Follow up with PCP, Dr. Castrejon in the next week. Job ID: [id number] MTDD
== END 2019-01-13 19:05 | disposition home or self-care (01) | DRG 917 ==
LOC: ERS 20:39 → IMCU/EMU 01-12 03:05 → 2SE 01-12 18:12
PROVIDERS: ADMIT Student in an Organized Health Care Education/Training Program; ATTEND Student in an Organized Health Care Education/Training Program
DX: T43.011A Poisoning by tricyclic antidepressants, accidental (unintentional), initial encounter (principal); G92 Toxic encephalopathy; N17.9 Acute kidney failure, unspecified; I69.354 Hemiplegia and hemiparesis following cerebral infarction affecting left non-dominant side; J45.909 Unspecified asthma, uncomplicated; R00.0 Tachycardia, unspecified; F41.9 Anxiety disorder, unspecified; F32.9 Major depressive disorder, single episode, unspecified; Z66 Do not resuscitate; I12.9 Hypertensive chronic kidney disease with stage 1 through stage 4 chronic kidney disease, or unspecified chronic kidney disease; N18.9 Chronic kidney disease, unspecified; G93.9 Disorder of brain, unspecified
CPT/HCPCS: 36415; 36416; 70450; 70551; 70552; 80053; 80061; 80306; 80307; 82550; 82805; 83605; 84443; 84484; 85025; 85610; 85730; 93005; 93010; 93306; 93880; 96361; 96374; 96376; 99292; J1650; J7070